=== PATIENT | female | born 1995 | race Caucasian/White ===

== ENCOUNTER 2020-12-08 09:19 | Emergency (ER) | payer OTHER ==
[2020-12-08 09:24] VITALS: BP 128/76; PULSE 98
--- NOTE | 2020-12-08 10:49 | EDM.PDOC ---
ED HPI GENERAL MEDICAL PROBLEM - General Chief Complaint: Respiratory Problem Stated Complaint: sore throat, fever, chest fullness Time Seen by Provider: 12/08/20 09:20 Source of Information: Reports: Patient History Limitations: Reports: No Limitations - History of Present Illness INITIAL COMMENTS - FREE TEXT/NARRATIVE: Pt. presents to ER with complaints of cough, sore throat, chest congestion, ear fullness. Pt. states that the symptoms started yesterday. She had a low grade fever at home. Pt. is not aware of any ill contacts. No nausea, vomiting, or diarrhea. Denies any abdominal pain. Onset: Today Onset Date: 12/08/20 Location: Reports: Chest, Generalized Chest Pain Score (Numeric/FACES): 4 - Related Data Allergies Allergy/AdvReac Type Severity Reaction Status Date / Time No Known Allergies Allergy Verified 12/08/20 09:20 Home Meds: Home Meds . [No Known Home Meds] 12/08/20 [History] Past Medical History [employer] History: Reports: Psychiatric History: Reports: None - Past Surgical History HEENT Surgical History: Reports: Oral Surgery Female Surgical History: Reports: Tubal Ligation Social & Family History - Tobacco Use Tobacco Use Status *Q: Never Tobacco User ED ROS GENERAL - Review of Systems Review Of Systems: Comprehensive ROS is negative, except as noted in HPI. ED EXAM, GENERAL - Physical Exam Exam: See Below Exam Limited By: No Limitations General Appearance: Alert, WD/WN, No Apparent Distress Eye Exam: Bilateral Eye: EOMI, Normal Fundi, Normal Inspection, PERRL Ears: Normal External Exam, Normal Canal, Hearing Grossly Normal, Other (L TM mildly erythematous. Clear fluid behind the TM. No obvious effusion) Nose: Normal Inspection, Normal Mucosa, No Blood Throat/Mouth: Normal Inspection, Normal Lips, Normal Teeth, Normal Gums, Normal Oropharynx, Normal Voice, No Airway Compromise Head: Atraumatic, Normocephalic Neck: Normal Inspection, Supple, Non-Tender, Full Range of Motion Respiratory/Chest: No Respiratory Distress, Lungs Clear, Normal Breath Sounds, No Accessory Muscle Use, Chest Non-Tender Cardiovascular: Normal Peripheral Pulses, Regular Rate, Rhythm, No Edema, No JVD, No Murmur Neurological: Alert, Oriented, CN II-XII Intact, Normal Cognition, Normal Gait, Normal Reflexes, No Motor/Sensory Deficits Course - Vital Signs Last Recorded V/S: Last Vital Signs Temp 37.0 C 12/08/20 09:20 Pulse 98 12/08/20 09:20 Resp 17 12/08/20 09:20 BP 128/76 12/08/20 09:20 Pulse Ox 98 12/08/20 09:20 - Orders/Labs/Meds Orders: Active Orders 24 hr Category Date Time Status CULTURE STREP A CONFIRMATION [RM] Stat Lab 12/08/20 10:05 Results STREP SCRN A RAPID W CULT CONF [RM] Stat Lab 12/08/20 10:05 Results Labs: Laboratory Tests 12/08/20 Range/Units 09:35 SARS-CoV-2 RNA (ESAU) Negative (NEGATIVE) Departure - Departure Time of Disposition: 10:25 Disposition: Home, Self-Care 01 Clinical Impression: Viral illness - Discharge Information Instructions: Viral Illness, Adult, Codeine; Promethazine oral solution Referrals: Suellen Lucia PA [Primary Care Provider] - Forms: ED Department Discharge Additional Instructions: Phenergan with codeine syrup 5ml (1 tsp) every 4-6 hours as needed for cough Ibuprofen 200mg 3 tabs every 6 hours as needed for discomfort/fever You can also use acetaminophen in addition For congestion, try sudafed (pseudoephedrine) Drink plenty of fluids Off work until you have been fever free for 24 hours Sepsis Event Note (ED) - Evaluation Sepsis Screening Result: No Definite Risk - Focused Exam Vital Signs: Vital Signs Temp Pulse Resp BP Pulse Ox 12/08/20 09:20 37.0 C 98 17 128/76 98 - Problem List Review Problem List Initiated/Reviewed/Updated: Yes - My Orders Last 24 Hours: My Active Orders 12/08/20 10:05 CULTURE STREP A CONFIRMATION [RM] Stat STREP SCRN A RAPID W CULT CONF [RM] Stat - Assessment/Plan Last 24 Hours: My Active Orders 12/08/20 10:05 CULTURE STREP A CONFIRMATION [RM] Stat STREP SCRN A RAPID W CULT CONF [RM] Stat Plan: Phenergan with codeine syrup 5ml (1 tsp) every 4-6 hours as needed for cough Ibuprofen 200mg 3 tabs every 6 hours as needed for discomfort/fever You can also use acetaminophen in addition For congestion, try sudafed (pseudoephedrine) Drink plenty of fluids Off work until you have been fever free for 24 hours
== END 2020-12-08 10:45 | disposition home or self-care (01) ==
LOC: LL.ED 09:19
DX: B34.9 Viral infection, unspecified (principal); Z20.822 Contact with and (suspected) exposure to COVID-19
CPT/HCPCS: 87081; 87430; 99283; U0002

== ENCOUNTER 2022-12-10 12:42 | Emergency (ER) | payer OTHER ==
[2022-12-10] MEDS ORDERED: fentaNYL 50 MCG/ML SDV ONE ×2 (12:47→13:14)
[2022-12-10] MEDS: fentaNYL 50 MCG/ML SDV IVPUSH ONE (12:49)
[2022-12-10 12:55] LABS: BASOPHILS ABSOLUTE AUTO 0.05 K/uL (0.00-0.20); BASOPHILS PERCENT AUTO 0.6 % (0.0-2.0); EOSINOPHILS ABSOLUTE AUTO 0.11 K/uL (0.00-0.50); EOSINOPHILS PERCENT AUTO 1.2 % (0.0-5.0); HEMATOCRIT 41.6 % (34.0-46.0); HEMOGLOBIN 14.4 g/dL (11.7-15.5); LYMPHOCYTES ABSOLUTE AUTO 2.05 K/uL (0.50-3.50); LYMPHOCYTES PERCENT AUTO 22.7 % (10.0-50.0); MEAN CORPUSCULAR HEMOGLOBIN 30.3 pg (28.2-33.3); MEAN CORPUSCULAR HGB CONC 34.6 g/dL (31.7-36.0); MEAN CORPUSCULAR VOLUME 87.6 fL (84.0-98.0); MONOCYTES ABSOLUTE AUTO 0.54 K/uL (0.00-1.00); NEUTROPHILS PERCENT AUTO 69.5 % (45.0-80.0); PLATELET COUNT,PLT 283 K/uL (150-350); RED BLOOD CELL COUNT 4.75 M/uL (3.77-5.09); RED CELL DISTRIBUTION WIDTH 12.5 % (11.2-14.1); WHITE BLOOD CELL COUNT,WBC 9.1 K/uL (4.0-10.2)
[2022-12-10] MEDS: Diphtheria,Pertussis(Acell),Tetanus Vaccine 0.5 ML Syringe IM ONE (12:55)
[2022-12-10] MEDS ORDERED: Iopamidol 612 MG/ML 100 ML Bottle IVPUSH ONE (12:56)
[2022-12-10 12:59] LABS: CALCIUM IONIZED,POC 1.14 mmol/L (1.12-1.32); CREATININE,POC 0.72 mg/dL (0.51-1.19); POTASSIUM,POC 3.4 mmol/L (3.5-4.5)
[2022-12-10 13:27] LABS: PROTHROMBIN TIME 9.9 SEC (9.0-11.1)
== END 2022-12-10 13:30 ==
LOC: LL.ED 12:42
DX: S01.81XA Laceration without foreign body of other part of head, initial encounter (principal); Z23 Encounter for immunization; V85.6XXA Passenger of special construction vehicle injured in nontraffic accident, initial encounter; Y92.410 Unspecified street and highway as the place of occurrence of the external cause
CPT/HCPCS: 36415; 70450; 71260; 72125; 74177; 80047; 85025; 85610; 90471; 90715; 96374; 99284; 99285-25; J3010; Q9967